=== PATIENT | male | born 1995 | race Asian ===

== ENCOUNTER 2023-03-30 09:13 | Emergency (ER) | payer SELFPAY ==
[2023-03-30] VITALS (8 sets, daily range): BP systolic 109–142; BP diastolic 65–87; PULSE 79–86; RESP 16–20; TEMP 36.6; O2SAT 98–100
--- NOTE | 2023-03-30 09:43 | ED.SKABFB ---
HPI - Skin/Abscess/Foreign Bdy General Chief complaint: Skin/Abscess/Foreign Body Stated complaint: RASH SWELLING Time Seen by Provider: 03/30/23 09:27 Source: patient Mode of arrival: ambulatory Limitations: no limitations History of Present Illness HPI narrative: Steve is a 27-year-old male patient presenting to the clinic today with complaints of rash to his bilateral shoulders and swelling to bilateral hands and to his scrotum. He reports that he used a new laundry detergent/softener 2 days ago when his symptoms started. Reports that he has taken some Benadryl and the rash has improved however he is still having some hand swelling and testicular swelling. Denies any shortness of breath, tongue swelling, angioedema, chest pain, or difficulty breathing. He has not taken any Benadryl today. Related Data Allergies Allergy/AdvReac Type Severity Reaction Status Date / Time No Known Allergies Allergy Verified 03/30/23 09:14 Review of Systems Review of Systems: Pertinent positives per HPI. Patient denies any fever, chills, rash, headache, visual changes, dizziness, cough, runny nose, sore throat, shortness of breath, chest pain, palpitations, nausea, vomiting, diarrhea, constipation, abdominal pain, or any urinary issues. PMFSH Comments At the time of my signature, I reviewed and agree with the nursing past medical, surgical, social, and family history. There is no relevant family history pertinent to the patient complaint. Exam Narrative: General: Well-developed, well nourished, in no apparent distress Head: Normocephalic, atraumatic Eyes: Pupils equally round and reactive to light bilaterally, EOM intact, sclera and conjunctive clear, no discharge, lids normal Ears: TMs intact and clear, ear canals clear, no drainage, grossly hearing normal. Nose: Nares patent, no discharge, no inflammation, no sinus tenderness. Mouth: Oropharynx without lesions or masses, good dentition, MMM. Neck: Supple, trachea midline, no enlargement of anterior or posterior cervical nodes, no thyroid masses or goiter palpable. Cardio: Regular rate and rhythm, s1 and s2 normal, no murmur appreciated. Resp: Clear to auscultation bilaterally anteriorly and posteriorly, no rhonchi, rales, wheezing or rubs Integumentary: Racetrack, warm, and dry, intact without lesion, red, raised, itchy rash to bilateral shoulders, mild scrotal swelling-denies scrotal pain or testicle pain Course Course Emergency Course: Portions of this record may have been created with voice recognition software. Vital Signs Vital signs: Vital Signs Temperature 36.6 C 03/30/23 09:16 Pulse Rate 86 03/30/23 09:16 Respiratory Rate 16 03/30/23 09:16 Blood Pressure 142/87 H 03/30/23 09:16 Pulse Oximetry 100 03/30/23 09:16 Oxygen Delivery Room Air 03/30/23 09:16 Temperature 36.6 C 03/30/23 09:16 Pulse Rate 86 03/30/23 09:16 Respiratory Rate 16 03/30/23 09:16 Blood Pressure 142/87 H 03/30/23 09:16 Pulse Oximetry 100 03/30/23 09:16 Oxygen Delivery Room Air 03/30/23 09:16 Vital signs reviewed MDM - Skin/Abscess/Foreign Bdy MDM Narrative Medical decision making narrative: At the time of visit patient is resting comfortably on the exam table. Patient appears to be nontoxic. Medications given: Dexamethasone 10 mg IM Plan: Patient is not having any shortness of breath, tongue swelling, angioedema, chest pain, or difficulty swallowing. I suspect patient is having a allergic reaction to new laundry detergent/fabric softener. Prescription for Pepcid and prednisone was sent to the pharmacy. Supportive measures were discussed with the patient and they voiced understanding discharge instructions and agrees to treatment plan. Return precautions reviewed Differential Diagnosis Differential diagnosis: Likely urticaria, allergic reaction to drug and other (Dermatitis, allergic reaction to new laundry detergent/fabric softener) Disc
[2023-03-30] MEDS: dexAMETHasone SOD PHOS INJ 10 MG/ML 1 ML VIAL IM (10:30)
== END 2023-03-30 11:21 | disposition home or self-care (01) ==
LOC: ANHED 09:51
PROVIDERS: Emergency Provider Nurse Practitioner Family
DX: T78.40XA Allergy, unspecified, initial encounter (principal); X58.XXXA Exposure to other specified factors, initial encounter
CPT/HCPCS: 96372; 99283; J1100

== ENCOUNTER 2023-04-09 09:31 | Emergency (ER) | payer MEDICAID, SELFPAY ==
--- NOTE | ~2023-04-09 | US_ITS ---
EXAMINATION: US venous doppler UE RT DATE: 04/09/2023 11:40 INDICATION: Right upper limb swelling and erythema. TECHNIQUE: Grayscale ultrasound images without and with compression and Doppler ultrasound images of the right upper extremity veins were obtained. COMPARISON: None. FINDINGS: The visualized portions of the right internal jugular vein, subclavian vein, axillary vein, brachial veins, basilic vein, cephalic vein, radial vein, and ulnar vein are patent. IMPRESSION: 1. No deep venous thrombosis. Reviewed, dictated and finalized at location E. SFORMATION MANAGER
[2023-04-09 09:49] VITALS: BP 125/87; PULSE 85; RESP 16; TEMP 36.5; O2SAT 99
[2023-04-09 11:32] LABS: Basophils Percent Auto 0.3 % (0.2-1.2); Eosinophils Absolute Auto 0.2 K/mm3 (0-0.3); Hemoglobin 17.4 g/dL (14.0-18.0); Immature Granulocyte Absolute 0.07 K/mm3 (0.00-0.031); Immature Granulocyte Percent A 0.5 % (0-0.5); Lymphocytes Absolute Auto 2.67 K/mm3 (0.9-3.2); Lymphocytes Percent Auto 17.5 % (18.3-44.2); Mean Corpuscular HGB Conc 34.8 g/dl (32-36); Mean Corpuscular Hemoglobin 29.5 pg (26-34); Mean Corpuscular Volume 84.9 fl (80-100); Mean Platelet Volume 10.1 fl (7.4-10.4); Monocytes Absolute Auto 1.1 K/mm3 (0.1-0.6); Monocytes Percent Auto 6.9 % (2.6-8.5); Neutrophils Absolute Auto 11.3 K/mm3 (1.3-6.7); Neutrophils Percent Auto 73.8 % (45.5-73.1); Platelet Count Result 351 k/mm3 (150-375); Red Blood Count 5.89 M/mm3 (4.6-6.20); Red Cell Distribution Width 11.6 % (11.5-14.5); White Blood Count 15.3 K/mm3 (4.5-10.0)
[2023-04-09 11:44] LABS: Anion Gap 4 mmol/L (8-16); Blood Urea Nitrogen 8 mg/dL (9-20); Calcium 9.3 mg/dL (8.4-10.2); Carbon Dioxide 31 mmol/L (22-30); Chloride 103 mmol/L (98-107); Estimated CRCL calculation 150 ml/min; Estimated Glomerular Filt Rate > 60; Glucose 112 mg/dL (65-110); Potassium 4.2 mmol/L (3.4-5.0); Sodium 138 mmol/L (137-145)
[2023-04-09 11:51] LABS: INR 1.1; Partial Thromboplastin Time 24.5 SECONDS (22.3-36.8); Prothrombin Time 14.7 Seconds (11.1-14.7)
--- NOTE | 2023-04-09 12:22 | ED.GENADULT ---
HPI - General Adult General Chief complaint: Unspecified Stated complaint: swelling Time Seen by Provider: 04/09/23 10:54 History of Present Illness HPI narrative: Patient is a 27-year-old male who presents ER with swelling and redness to the right arm. He has seen a few days ago for contact dermatitis related to a new laundry detergent. He has discarded that laundry detergent is using a different 1. His rash is significantly improved. He has noticed some redness coming back to his right arm today. It is not pruritic. His right forearm is swollen compared to the left. No history of DVT or PE. No difficulty breathing. He has been taking oral steroids at home as well as famotidine. Related Data Allergies Allergy/AdvReac Type Severity Reaction Status Date / Time No Known Allergies Allergy Verified 04/09/23 10:54 Review of Systems Constitutional: Constitutional: Reports no additional constitutional complaints Cardiovascular: Cardiovascular: Reports no additional cardiovascular complaints Respiratory: Respiratory: Reports no additional respiratory complaints Musculoskeletal: Musculoskeletal: Reports no additional musculoskeletal complaints Integumentary/Breasts: Skin/Breast: Reports erythema, Reports rash, Denies skin ulcer and Denies sores PMFSH Past Medical History Medical History (Updated 04/09/23 @ 12:28 by Paco Stephenson MD) Healthy adult male Surgical History Surgical History (Updated 04/09/23 @ 12:24 by Paco Stephenson MD) No pertinent past surgical history Exam Narrative: GENERAL: Well-appearing, well-nourished, and in no acute distress. HEAD: Normocephalic, atraumatic. ENT: Mucous membranes moist. HEART: Regular rate and rhythm. Normal peripheral pulses. EXTREMITIES: Normal range of motion. No edema. right forearm is enlarged compared to left. There is mild warmth and slight erythema over the anterior forearm. SKIN: Warm, dry, no rash. NEURO: Alert and oriented x3. PSYCH: Normal mood and affect. Course Course Emergency Course: No evidence of clot. No superficial thrombophlebitis on exam. May have developing cellulitis so be placed on a oral antibiotic. Recommend he continue his prednisone and famotidine. Vital Signs Vital signs: Vital Signs Temperature 97.7 F 04/09/23 09:49 Pulse Rate 85 04/09/23 09:49 Respiratory Rate 16 04/09/23 09:49 Blood Pressure 125/87 04/09/23 09:49 Pulse Oximetry 99 04/09/23 09:49 Oxygen Delivery Room Air 04/09/23 09:49 Temperature 97.7 F 04/09/23 09:49 Pulse Rate 85 04/09/23 09:49 Respiratory Rate 16 04/09/23 09:49 Blood Pressure 125/87 04/09/23 09:49 Pulse Oximetry 99 04/09/23 09:49 Oxygen Delivery Room Air 04/09/23 09:49 Medical Decision Making Vital Signs Vital Signs: Vital Signs Temperature 97.7 F 04/09/23 09:49 Pulse Rate 85 04/09/23 09:49 Respiratory Rate 16 04/09/23 09:49 Blood Pressure 125/87 04/09/23 09:49 Pulse Oximetry 99 04/09/23 09:49 Oxygen Delivery Room Air 04/09/23 09:49 Temperature 97.7 F 04/09/23 09:49 Pulse Rate 85 04/09/23 09:49 Respiratory Rate 16 04/09/23 09:49 Blood Pressure 125/87 04/09/23 09:49 Pulse Oximetry 99 04/09/23 09:49 Oxygen Delivery Room Air 04/09/23 09:49 Lab Data 04/09/23 11:25 04/09/23 11:25 Labs: Lab Results 04/09/23 Range/Units 11:25 WBC 15.3 H (4.5-10.0) K/mm3 RBC 5.89 (4.6-6.20) M/mm3 Hgb 17.4 (14.0-18.0) g/dL Hct 50.0 (42.0-52.0) % MCV 84.9 (80-100) fl MCH 29.5 (26-34) pg MCHC 34.8 (32-36) g/dl RDW 11.6 (11.5-14.5) % Plt Count 351 (150-375) k/mm3 MPV 10.1 (7.4-10.4) fl Immature Gran % (Auto) 0.5 (0-0.5) % Neut % (Auto) 73.8 H (45.5-73.1) % Lymph % (Auto) 17.5 L (18.3-44.2) % Crane % (Auto) 6.9 (2.6-8.5) % Eos % (Auto) 1.0 (0-4.4) % Baso % (Auto) 0.3 (0.2-1.2) % Lymph # (Auto) 2.67 (0.9-3.2) K/mm3
[2023-04-09 12:34] VITALS: BP 124/72; PULSE 88; RESP 16; O2SAT 100
== END 2023-04-09 12:35 | disposition home or self-care (01) ==
PROVIDERS: Emergency Provider Emergency Medicine
DX: L03.115 Cellulitis of right lower limb (principal)
CPT/HCPCS: 36415; 80048; 85025; 85610; 85730; 93971; 99284

== ENCOUNTER 2023-04-10 04:10 | Emergency (ER) | payer MEDICAID, SELFPAY ==
[2023-04-10 04:12] VITALS: BP 120/84; PULSE 92; RESP 16; TEMP 36.5; O2SAT 100
--- NOTE | 2023-04-10 07:18 | ED.EYEPROB ---
HPI - Eye Problem General Chief complaint: Eye Problems Stated complaint: L eye swelling Time Seen by Provider: 04/10/23 07:05 History of Present Illness HPI Narrative: Patient is a 27-year-old male with no prior medical history here today with left eye swelling. Patient notes the eye swelling began overnight last night and is located on the left eye. He denies any trauma or pain. Mild increased tearing, no fever chills. Of note patient has been struggling with allergic reactions over the last 10 days. He initially had some in his hands and then was seen here in the emergency department several times, started on steroids which finished 2 days ago. He is not a contact lens user. He was started on antibiotics on his last visit for possible Related Data Allergies Allergy/AdvReac Type Severity Reaction Status Date / Time No Known Allergies Allergy Verified 04/10/23 04:42 Review of Systems Review of Systems: All systems reviewed & are unremarkable except as noted in HPI and below PMFSH Past Medical History Medical History (Updated 04/10/23 @ 11:19 by Shaila Mas MD) Healthy adult male Surgical History Surgical History (Updated 04/09/23 @ 12:24 by Paco Stephenson MD) No pertinent past surgical history Exam Narrative: GENERAL: Well-appearing, well-nourished, and in no acute distress. HEAD: Normocephalic, atraumatic. EYES: PERRLA and EOMI. No conjunctival erythema. Significant gabriella orbital edema without any erythema or warmth. Painless range of motion of eye ENT: Nares clear. Mucous membranes moist. NECK: Supple. CHEST: Clear to auscultation. No respiratory distress. HEART: Regular rate and rhythm. Normal peripheral pulses. ABDOMEN: Soft, nontender, nondistended. EXTREMITIES: Normal range of motion. No edema. SKIN: Warm, dry, no rash. NEURO: No focal deficits. Alert and oriented x3. PSYCH: Normal mood and affect. Course Course Emergency Course: Chart review performed. Patient here with L eye swelling. Triage vitals normal. He was seen on 04/09/23 for redness and swelling to right arm, diagnosed with possible contact dermatitis from new laundry detergent and cellulitis. He was started on Cefuroxime. Patient seen evaluated, nontoxic appearing. Exam consistent with allergic reaction, it seemed to have occurred after discontinuing his steroid course. Will give dose of prednisone and Pepcid here in the emergency department and plan for discharge on an additional course of Pepcid, prednisone. Will refer to director of marketing as well as primary care doctor for close follow-up. The results of pertinent diagnostic studies and exam findings were discussed. The patient?s provisional diagnosis and plan of care were discussed with the patient and present family. The patient and/or present family expressed understanding of the diagnosis and plan. The nurse was instructed to provide written instructions and appropriate follow-up information. The patient understands their need and responsibility to obtain additional follow-up as instructed. The risks of medications administered and prescribed were discussed with the patient and family present. Vital Signs Vital signs: Vital Signs Temperature 97.7 F 04/10/23 04:12 Pulse Rate 92 04/10/23 04:12 Respiratory Rate 16 04/10/23 04:12 Blood Pressure 120/84 04/10/23 04:12 Pulse Oximetry 100 04/10/23 04:12 Oxygen Delivery Room Air 04/10/23 04:12 Temperature 97.9 F 04/10/23 09:00 Pulse Rate 89 04/10/23 09:00 Respiratory Rate 18 04/10/23 09:00 Blood Pressure 124/84 04/10/23 09:00 Pulse Oximetry 98 04/10/23 09:00 Oxygen Delivery Room Air 04/10/23 04:12 Discharge Plan Discharge Clinical Impression: Eye swelling, left Patient Disposition: Home, Self-Care Condition: Stable Instructions: Antibiotic Form, Allergies (ED), Eyelid Swelling (ED) Additional Instructions: No concern for infection based on my exam today. H
[2023-04-10] MEDS: diphenhydrAMINE HCl CAP 25 MG CAPSULE 50 MG PO (08:58)
[2023-04-10] MEDS: FAMOTIDINE 20 MG TABLET 40 MG PO (08:59)
[2023-04-10] MEDS: predniSONE 20 MG TABLET 40 MG PO (08:59)
[2023-04-10 09:00] VITALS: BP 124/84; PULSE 89; RESP 18; TEMP 36.6; O2SAT 98
[2023-04-10 11:31] VITALS: BP 127/81; PULSE 94; RESP 18; O2SAT 98
== END 2023-04-10 11:31 | disposition home or self-care (01) ==
PROVIDERS: Emergency Provider Student in an Organized Health Care Education/Training Program
DX: R22.0 Localized swelling, mass and lump, head (principal)
CPT/HCPCS: 99283; A9270; J7512